=== PATIENT | male | born 1985 | race Caucasian/White ===

== ENCOUNTER 2023-01-11 16:34 | Emergency (ER) | payer OTHER, SELFPAY ==
--- NOTE | ~2023-01-11 | XR_ITS ---
EXAMINATION: XR LUMBOSACRAL SPINE CLINICAL INFORMATION: Pain. COMPARISON: None available. TECHNIQUE: Three views of the lumbosacral spine. FINDINGS: The alignment is normal. There is mild to moderate L5-S1 disc degenerative change with loss of disc space, endplate change and mild osteophyte formation. The remaining disc spaces are maintained. The vertebral body heights are maintained. The soft tissues are unremarkable. XR/XR lumbar spine 2-3V IMPRESSION: Mild to moderate L5-S1 disc degenerative change. No fracture or malalignment.
--- NOTE | ~2023-01-11 | XR_ITS ---
EXAMINATION: XR SACROILIAC JOINTS CLINICAL INFORMATION: Pain. COMPARISON: None available. TECHNIQUE: 3 views of the sacroiliac joints. FINDINGS: Bones and soft tissues are normal. No fracture. Alignment is anatomic. Sacroiliac joint spaces are well maintained without erosions or surrounding sclerosis. XR/XR sacroiliac joint 1-2V IMPRESSION: No significant abnormality identified.
[2023-01-11 16:50] VITALS: BP 162/82; PULSE 68; RESP 17; TEMP 36.8; O2SAT 98; BMI 25.6
--- NOTE | 2023-01-11 16:50 | ED.BACK ---
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 Patient not aware of any injury to the lower back per se Related Data Previous Rx's Medication Instructions Recorded cyclobenzaprine 10 mg tablet 10 mg PO BEDTIME PRN muscle spasm 01/11/23 #14 tabs ibuprofen 800 mg tablet 800 mg PO Q8H PRN pain #14 tabs 01/11/23 Allergies Allergy/AdvReac Type Severity Reaction Status Date / Time No Known Allergies Allergy Verified 01/11/23 16:58 Review of Systems Review of Systems: All other systems are reviewed and are negative Constitutional: Reports as per HPI and Reports no additional constitutional complaints Eyes: Reports as per HPI and Reports no additional eye complaints Reports system reviewed and no additional complaints, except as documented Cardiovascular: Reports as per HPI and Reports no additional cardiovascular complaints Respiratory: Reports as per HPI and Reports no additional respiratory complaints Gastrointestinal: Reports as per HPI and Reports no additional gastrointestinal complaints Genitourinary: Reports no additional female genitourinary complaints Musculoskeletal: Reports no additional musculoskeletal complaints Skin/Breast: Reports system reviewed and no additional complaints, except as docu Psychiatric: Reports no additional psychiatric complaints Endocrine: Reports no additional endocrine complaints Hematologic/Lymphatic: Reports no additional hematologic/lymphatic complaints Allergic/Immunologic: Reports no additional allergic/immunologic complaints Reports system reviewed and no additional complaints, except as documented and Reports Abnormal speech present [facility] Social History Social History Advance Directives: No Advance Directives Information Provided: No Physical Exam Vital Signs: Vital Signs: Last Vital Signs Temp 98.2 F 01/11/23 16:50 Pulse 70 01/11/23 18:44 Resp 18 01/11/23 18:44 BP 156/92 H 01/11/23 18:44 Pulse Ox 100 01/11/23 18:44 O2 Del Method Room Air 01/11/23 18:44 BMI result Body Mass Index 25.6 Vital signs have been reviewed as appeared to be correct. Blood pressure normal. Heart rate normal. Respiration rate normal. Temperature normal. Oxygen saturation normal. Appearance: Alert. Oriented X3. No acute distress. Head: Normal external exam. Normocephalic. Atraumatic. No [place] signs noted. No raccoon eyes noted Eyes: PERRLA. EOMI. Conjunctiva and sclera normal. Eyelids normal. ENT: TM's Normal. Pharynx normal. Uvula midline. Moist mucous membranes. No trismus noted. No drooling noted. No muffled voice noted. Neck: Normal inspection. Neck supple. FROM. No adenopathy. Thyroid Normal. No meningeal signs. No neck mass noted. CVS: Normal heart rate and rhythm. Heart sound normal. No murmurs noted. Pulses normal throughout. Respiratory: No respiratory distress. Painless inspiration. Breath sounds normal. No wheezes/rales/rhonchi noted. Chest nontender. No accessory muscle usage noted or decreased air movement noted. Abdomen: Soft and nontender. Bowel sounds normal in all 4 quadrants. No distention noted. No organomegaly noted. No visible injury noted. Back: No CVA tenderness. Full range of motion noted. No lumbar spine step-off or deformity, paraspinous muscle spasm. Skin: Skin warm and dry. Normal skin color. Normal skin turgor. No rashes/lesions/lacerations noted. Extremities: No lower extremity edema. Extremities exhibit normal range of motion. Extremities nontender. Neuro: Oriented X 3. Cranial nerve exam: II-XII are grossly intact No motor deficit. No sensory deficit. Reflexes normal. Course Course Course Narrative: RME: 37yo M w/no sig PMHx [place] Speaking presenting to the ED c/o low back pain x few days. denies injury/fall. Denies N/V, hematuria, dysuria, fever, cough States sx used to come and go, hasn't tried anything for pain UA ordered Full HPI, ROS and PE to be performed by primary ED provider. 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 Will discharge home on muscle relaxant, NSAIDs, bedrest, heating pad. Time: 19:36 Medical Decision Making Differential Diagnosis Differential Diagnoses: The differential diagnosis associated with the presentation includes (Muscular spasm, lumbar spine fracture, lumbar radiculopathy.) Admission/Observation Consideration of admission/observation: Escalation of care including admission/observation considered Lab Data MDM Lab Attestation statement: I reviewed the patient's lab results. Labs: Lab Results 01/11/23 Range/Units 17:15 Urine Color Yellow Urine Appearance Clear Urine pH 5.5 (5.0-9.0) Ur Specific [place] >= 1.030 H (1.005-1.025) Urine Protein Negative (Neg-Trace) mg/dL Urine Glucose (UA) >=1000 H (Negative) mg/dL Urine Ketones Trace (Negative) mg/dL Urine Blood Negative (Negative) Urine Nitrite Negative (Negative) Ur Leukocyte Esterase Negative (Negative) Urine RBC 0-2 (0-2) /HPF Urine WBC 0-5 (0-5) /HPF Ur Squamous Epith Cells 0-2 (0-2) /HPF Urine Bacteria None Seen (None Seen) Hyaline Casts 0-2 (0-2) /LPF Independent Interpretation I performed an independent interpretation of an: Plain X-Ray (Lumbar/sacroiliac x-ray: No acute pathology.) Radiology Impression Discussion of test interpretation with radiology: I have reviewed the radiologist's reading. Discharge Plan Discharge Clinical Impression: Strain of lumbar region Patient Disposition: Home, Self-Care Instructions: Low Back Strain (ED) Prescriptions: New cyclobenzaprine 10 mg tablet 10 mg PO BEDTIME PRN (Reason: muscle spasm) Qty: 14 0RF ibuprofen 800 mg tablet 800 mg PO Q8H PRN (Reason: pain) Qty: 14 0RF Stand Alone Forms: Work/School Release
[2023-01-11 17:28] LABS: Appearance Urine Clear; Color Urine Yellow; Glucose Urine UA >=1000 mg/dL (Negative); Leukocyte Esterase Urine Negative (Negative); Nitrite Urine Negative (Negative); PH 5.5 (5.0-9.0); Specific Gravity - Urine >= 1.030 (1.005-1.025); UMIC TRIGGER UACC YES; Urine Blood Negative (Negative); Urine Ketones Trace mg/dL (Negative); Urine Protein Negative (Neg-Trace)
[2023-01-11 18:09] LABS: Bacteria Urine None Seen (None Seen); Hyaline Casts Urine 0-2 /LPF (0-2); RBC Urine 0-2 /HPF (0-2); Squamous Epithelial Cell Urine 0-2 /HPF (0-2); WBC Urine 0-5 /HPF (0-5)
[2023-01-11 18:44] VITALS: BP 156/92; PULSE 70; RESP 18; O2SAT 100
[2023-01-11 20:24] VITALS: BP 145/85; PULSE 60; RESP 18; TEMP 36.4; O2SAT 100
[2023-01-11 20:31] VITALS: BP 147/60; PULSE 71; RESP 18; TEMP 36.8; O2SAT 100
== END 2023-01-11 20:45 | disposition home or self-care (01) ==
PROVIDERS: Physician Assistant; Emergency Provider Emergency Medicine
DX: S39.012A Strain of muscle, fascia and tendon of lower back, initial encounter (principal); X50.0XXA Overexertion from strenuous movement or load, initial encounter; Y93.9 Activity, unspecified; Y92.9 Unspecified place or not applicable; Y99.0 Civilian activity done for income or pay
CPT/HCPCS: 72100; 72200; 81001; 99283